=== PATIENT | female | born 1980 | race Caucasian/White ===

== ENCOUNTER 2016-11-06 22:30 | Emergency (ER) | payer OTHER ==
[~2016-11-06] VITALS: Ht 165.1 cm; Wt 95.7 kg
[~2016-11-06 22:30] MED LIST: ALBU5SOL2; BIRTH CONTROL; CETI10TA22; DIPH25CA58; FLUT16SP2; MONT10TA6
[2016-11-06 23:14] LABS: BASO # 0.1 x10^3/uL (0.0-0.2); BASO % 0 % (0-3); EOS % 0 % (0-3); HEMATOCRIT 47.9 % (36.0-47.0); HEMOGLOBIN 16.2 g/dL (12.0-15.5); LYMPH # 1.5 x10^3/uL (1.0-4.8); LYMPH % 13 % (24-48); MEAN CORPUSCULAR HEMOGLOBIN 31 pg (25-35); MEAN CORPUSCULAR HGB CONC 34 g/dL (31-37); MEAN CORPUSCULAR VOLUME 92 fL (79-100); MONO % 1 % (0-9); NEUT % 86 % (31-73); PLATELET COUNT 273 x10^3/uL (140-400); RED BLOOD COUNT 5.22 x10^6/uL (3.50-5.40); RED CELL DISTRIBUTION WIDTH 12.8 % (11.5-14.5)
[2016-11-06] MEDS ORDERED: CONTRAST GIVEN MC PRN (23:15)
[2016-11-06 23:26] LABS: CREATININE 0.9 mg/dL (0.6-1.0); GFR 70.1; POTASSIUM 4.6 mmol/L (3.5-5.1)
[2016-11-06 23:32] LABS: DIRECT BILIRUBIN 0.1 mg/dL (0.0-0.2); TOTAL BILIRUBIN 0.4 mg/dL (0.2-1.0); TOTAL PROTEIN 7.8 g/dL (6.4-8.2)
--- NOTE | 2016-11-06 23:43 | PHYS DOC ---
Past Medical History Past Medical History: Asthma, CHF Additional Past Medical Histor: Severe seasonal allergies. Past Surgical History: Other Additional Past Surgical Histo: D&C, Tumor left ear, Adnoidectomy Alcohol Use: Rarely Drug Use: None Adult General Chief Complaint Chief Complaint: SHORTNESS OF BREATH HPI HPI 28-year-old female presenting to the emergency department today with intermittently having a cough with shortness of breath for 5 weeks. Usually she reports this improved prednisone. She reports a history of asthma. It is worse with exertion. She denies chest pain abdominal pain nausea vomiting diaphoresis. Onset 5 weeks Location lungs Duration intermittent No alleviating factors. Review of Systems Review of Systems ROS negative for nausea vomiting fevers or chills. Negative for abdominal pain headache. All other review of systems is negative unless otherwise noted in history of present illness. Current Medications Current Medications Current Medications Medications (Trade) Dose Ordered Sig/Ruel Start Time Stop Time Status Last Admin Dose Admin Info (Do NOT chart on this entry -- for MONITORING) 1 each PRN DAILY PRN 11/06/16 23:15 11/07/16 01:35 DC Iohexol (Omnipaque 300 Mg/ml) 60 ml 1X ONCE 11/06/16 23:45 11/06/16 23:46 DC 11/07/16 00:08 75 ML Allergies Allergies Allergies Coded Allergies Type Severity Reaction Last Updated Verified Penicillins Allergy Intermediate Unknown 03/12/14 Yes Sulfa (Sulfonamide Antibiotics) Allergy Intermediate Unknown 03/12/14 Yes hydrocodone Allergy Intermediate Unknown 03/12/14 Yes sulfamethoxazole Allergy Intermediate Unknown 03/12/14 Yes trimethoprim Allergy Intermediate Unknown 03/12/14 Yes zolpidem Allergy Intermediate 03/12/14 Yes Uncoded Allergies Type Severity Reaction Last Updated Verified SQUASH Allergy Unknown Unknown 03/12/14 WATERMELON Allergy Unknown Unknown 03/12/14 ZUCCHINI Allergy Unknown Unknown 03/12/14 Physical Exam Physical Exam Constitutional: Well developed, well nourished, no acute distress, non-toxic appearance. Patient breathing comfortably on room air saturating well. HENT: Normocephalic, atraumatic, bilateral external ears normal, oropharynx moist, no oral exudates, nose normal. Eyes: PERRLA, EOMI, conjunctiva normal, no discharge. Neck: Normal range of motion, no tenderness, supple, no stridor. [] Cardiovascular:Heart rate regular rhythm, no murmur Lungs & Thorax: Bilateral breath sounds clear to auscultation . No crackles or wheezing present. Normal extremities. Abdomen: Bowel sounds normal, soft, no tenderness, no masses, no pulsatile masses. [] Skin: Warm, dry, no erythema, no rash. [] Back: No tenderness, no CVA tenderness. Extremities: No tenderness, no cyanosis, no clubbing, ROM intact, no edema. [] Neurologic: Alert and oriented X 3, normal motor function, normal sensory function, no focal deficits noted. Psychologic: Affect normal, judgement normal, mood normal. [] Current Patient Data Vital Signs Vital Signs Date Time Temp Pulse Resp B/P Pulse Ox O2 Delivery O2 Flow Rate FiO2 11/06/16 22:39 98.0 100 22 169/93 98 Room Air 98.0 Lab Values Laboratory Tests Test 11/06/16 23:00 White Blood Count 12.0x10^3/uL (4.0-11.0) H Red Blood Count 5.22x10^6/uL (3.50-5.40) Hemoglobin 16.2g/dL (12.0-15.5) H Hematocrit 47.9% (36.0-47.0) H Mean Corpuscular Volume 92fL (79-100) Mean Corpuscular Hemoglobin 31pg (25-35) Mean Corpuscular Hemoglobin Concent 34g/dL (31-37) Red Cell Distribution Width 12.8% (11.5-14.5) Platelet Count 273x10^3/uL (140-400) Neutrophils (%) (Auto) 86% (31-73) H Lymphocytes (%) (Auto) 13% (24-48) L Monocytes (%) (Auto) 1% (0-9) Eosinophils (%) (Auto) 0% (0-3) Basophils (%) (Auto) 0% (0-3) Neutrophils # (Auto) 10.4x10^3uL (1.8-7.7) H Lymphocytes # (Auto) 1.5x10^3/uL (1.0-4.8) Monocytes # (Auto) 0.1x10^3/uL (0.0-1.1) Eosinophils # (Auto) 0.0x10^3/uL (0.0-0.7) Basophils # (Auto) 0.1x10^3/uL (0.0-0.2) Segmented Neutrophils % 83% (35-66) H Band Neutrophils % 1% (0-9) Lymphocytes % 14% (24-48) L Monocytes % 2% (0-10) Toxic Granulation Slight Platelet Estimate Adequate (ADEQUATE) Sodium Level 137mmol/L (136-145) Potassium Level 4.6mmol/L (3.5-5.1) Chloride Level 101mmol/L (98-107) Carbon Dioxide Level 25mmol/L (21-32) Anion Gap 11 (6-14) Blood Urea Nitrogen 10mg/dL (7-20) Creatinine 0.9mg/dL (0.6-1.0) Estimated GFR (Cockcroft-Gault) 70.1 Glucose Level 158mg/dL (70-99) H Calcium Level 10.0mg/dL (8.5-10.1) Total Bilirubin 0.4mg/dL (0.2-1.0) Direct Bilirubin 0.1mg/dL (0.0-0.2) Aspartate Amino Transferase (AST) 14U/L (15-37) L Alanine Aminotransferase (ALT) 26U/L (14-59) Alkaline Phosphatase 61U/L (46-116) Troponin I Quantitative < 0.017ng/mL (0.000-0.055) OA-Wpd-G-Type Natriuretic Peptide 82pg/mL (0-124) Total Protein 7.8g/dL (6.4-8.2) Albumin 4.0g/dL (3.4-5.0) Lipase 160U/L (73-393) Laboratory Tests 11/06/16 23:00 Laboratory Tests 11/06/16 23:00 EKG EKG EKG shows sinus rhythm with a regular rate. [place] is leftward. Intervals are within normal limits. ST segments congruent. [] Radiology/Procedures Radiology/Procedures [] Chest x-ray shows no obvious infiltrate or pneumothorax. [facility] [address] [place] [address] IMAGING REPORT Signed PATIENT: KOMAL HER ACCOUNT: [id number] : 1980 LOCATION: ER AGE: 36 SEX: F EXAM STATUS: REG ER ORD. PHYSICIAN: MELLISA MANUEL MD REASON: short of breath, evaluate for pulmonary embolism PROCEDURE: CTA CHEST INDICATION: Worsening shortness of air over the past few weeks, weakness. COMPARISON: None TECHNIQUE: Axial CT images obtained through the chest following the intravenous administration of 75 cc of Omni 300 utilizing an angiogram protocol. 3D images processed per protocol. One or more of the following individualized dose reduction techniques were utilized for this examination: 1. Automated exposure control; 2. Adjustment of the mA and/or kV according to patient size; 3. Use of iterative reconstruction technique. FINDINGS: Pulmonary arteries are opacified without central filling defect to suggest pulmonary embolus. The aorta is normal in caliber. The heart is normal in size without pericardial effusion. No significant mediastinal or hilar lymphadenopathy is seen. Calcified subcarinal lymph node is present. No focal opacity, pleural effusion or pneumothorax. A 1.1 cm pulmonary nodule is present within the left lower lobe along the fissure with central calcification, suggestive of a calcified granuloma. The central airways appear patent. The visualized osseous structures and overlying soft tissues demonstrate no acute or suspicious finding. The visualized neck base demonstrates no acute finding. Visualized upper abdomen demonstrates no acute finding. IMPRESSION: 1. No CT evidence of PE or other acute cardiopulmonary process. No focal consolidation. 2. Findings of prior granulomatous disease. Electronically signed by: Sudeep Gamble (Nov 07, 2016 00:53:13) DICTATED and SIGNED BY: SUDEEP GAMBLE MD DATE: 11/07/16 0053 CC: MELLISA MANUEL MD; NO PCP ~ Course & Med Decision Making Course & Med Decision Making Pertinent Labs and Imaging studies reviewed. (See chart for details) 28-year-old female presenting the emergency department or shortness of breath. On evaluation the patient's vital signs showed mild tachycardia with hypertension otherwise unremarkable. Physical exam showed no pulmonary findings. EKG unremarkable. Chest x-ray unremarkable. Blood work obtained which showed mild leukocytosis likely secondary to prednisone. Hemoglobin elevated likely secondary to smoking. Otherwise, chemistry panel unremarkable. Troponin negative. BNP nl. CTA of the chest showed no evidence of pulmonary embolism. There was suggestion of granulomatous disease. Given the patient's clinical presentation age and gender, sarcoidosis moves up on the differential. I referred the patient to her primary care physician for continuing workup of possible sarcoidosis and possible referral to a evp strategy for further treatment and care. Dragon Disclaimer Dragon Disclaimer This electronic medical record was generated, in whole or in part, using a voice recognition dictation system. Departure Departure Impression: Primary Impression: Shortness of breath Disposition: 01 HOME, SELF-CARE Referrals: NO PCP (PCP) SAM SOLIMAN MD Patient Instructions: Sarcoidosis, Shortness of Breath Additional Instructions: Thank you for allowing us to participate in your care today. Followup with your primary care physician in 3 days if your symptoms do not improve. If you do not have a primary care provider you can ask for a list of our primary care providers. Return to the emergency department you have any new or concerning findings. This should be evaluated by the primary care physician and any necessary consulting services for continued management within a few days after discharge. Return to emergency room if you have any new or concerning symptoms including but not limited to fever, chills, nausea, vomiting, intractable pain, any new rashes, chest pain, shortness of air, uncontrolled bleeding, difficulty breathing, and/or vision loss. MELLISA MANUEL MD Nov 06, 2016 23:43
[2016-11-06] MEDS ORDERED: IOHEXOL 300 MG/ML 100ML VIAL. IV ONE (23:45)
[2016-11-06 23:47] LABS: PLT ESTIMATE ADEQUATE (ADEQUATE); TOXIC GRANULATION SLIGHT
--- NOTE | 2016-11-07 00:54 | RAD ---
INDICATION: Worsening shortness of air over the past few weeks, weakness. COMPARISON: None TECHNIQUE: Axial CT images obtained through the chest following the intravenous administration of 75 cc of Omni 300 utilizing an angiogram protocol. 3D images processed per protocol. One or more of the following individualized dose reduction techniques were utilized for this examination: 1. Automated exposure control; 2. Adjustment of the mA and/or kV according to patient size; 3. Use of iterative reconstruction technique. FINDINGS: Pulmonary arteries are opacified without central filling defect to suggest pulmonary embolus. The aorta is normal in caliber. The heart is normal in size without pericardial effusion. No significant mediastinal or hilar lymphadenopathy is seen. Calcified subcarinal lymph node is present. No focal opacity, pleural effusion or pneumothorax. A 1.1 cm pulmonary nodule is present within the left lower lobe along the fissure with central calcification, suggestive of a calcified granuloma. The central airways appear patent. The visualized osseous structures and overlying soft tissues demonstrate no acute or suspicious finding. The visualized neck base demonstrates no acute finding. Visualized upper abdomen demonstrates no acute finding. IMPRESSION: 1. No CT evidence of PE or other acute cardiopulmonary process. No focal consolidation. 2. Findings of prior granulomatous disease. Electronically signed by: Lizbeth Gamble (Nov 07, 2016 00:53:13)
[2016-11-07 01:00] VITALS: BP 138/91
--- NOTE | 2016-11-07 06:15 | EKG ---
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
--- NOTE | 2016-11-07 07:03 | RAD ---
EXAM: Chest, single view. HISTORY: Chest pain. COMPARISON: 03/12/2014. FINDINGS: A frontal view of the chest is obtained. There is no infiltrate, effusion or pneumothorax. The heart is normal in size. IMPRESSION: No acute pulmonary finding.
== END 2016-11-07 01:28 | disposition home or self-care (01) ==
LOC: ER 22:30
DX: R06.02 Shortness of breath (principal); R05 Cough; J45.909 Unspecified asthma, uncomplicated; I50.9 Heart failure, unspecified; Z88.1 Allergy status to other antibiotic agents; Z88.5 Allergy status to narcotic agent; Z88.0 Allergy status to penicillin; Z88.2 Allergy status to sulfonamides; Z88.8 Allergy status to other drugs, medicaments and biological substances; Z91.018 Allergy to other foods
CPT/HCPCS: 36415; 71010; 71275; 80048; 80076; 83690; 83880; 84484; 85007; 85027; 93005; 99285; Q9967

== ENCOUNTER 2016-12-18 09:16 | Emergency (ER) | payer OTHER ==
[~2016-12-18] VITALS: Ht 165.1 cm; Wt 97.5 kg
[2016-12-18 09:35] VITALS: BP 146/95
[2016-12-18] MEDS ORDERED: KETOROLAC TROMETHAMINE 60 MG/2 ML SYRINGE. IM ONE (09:45)
--- NOTE | 2016-12-18 10:32 | RAD ---
Left lower extremity venous ultrasound, 12/18/2016 : History: Left calf pain Duplex evaluation including grayscale, color flow and spectral Doppler analysis was performed. The femoral and popliteal veins show no filling defects to suggest DVT. The visualized calf veins are unremarkable. IMPRESSION: There is no sonographic evidence of deep vein thrombosis in the left lower extremity
--- NOTE | 2016-12-18 10:40 | PHYS DOC ---
Past Medical History Past Medical History: Asthma, CHF Additional Past Medical Histor: Severe seasonal allergies. Past Surgical History: Other Additional Past Surgical Histo: D&C, Tumor left ear, Adnoidectomy Alcohol Use: Rarely Drug Use: None Adult General Chief Complaint Chief Complaint: LOWER EXTREMITY SWELLING [facility] HPI Patient is a 36 year old female who presents with left calf pain and swelling that is intermittent over the past few weeks. State she was seen at primary care and given muscle relaxers and NSAIDs but this has not relieved her pain. Also tried home hydrocodone without relief. Denies injury. States she was fired from clinic due to "coming to [facility] in the recent past and they no longer trust her". She denies rash, f/c, numbness, tingling, weakness. Review of Systems Review of Systems Constitutional: Denies fever or chills [] Eyes: Denies change in visual acuity, redness, or eye pain [] HENT: Denies nasal congestion or sore throat [] Respiratory: Denies cough or shortness of breath [] Cardiovascular: No additional information not addressed in HPI [] GI: Denies abdominal pain, nausea, vomiting, bloody stools or diarrhea [] : Denies dysuria or hematuria [] Musculoskeletal: Denies back pain [] Integument: Denies rash or skin lesions [] Neurologic: Denies headache, focal weakness or sensory changes [] Endocrine: Denies polyuria or polydipsia [] Current Medications Current Medications Current Medications Medications (Trade) Dose Ordered Sig/Ruel Start Time Stop Time Status Last Admin Dose Admin Ketorolac Tromethamine (Toradol Im) 15 mg 1X ONCE 12/18/16 09:45 12/18/16 09:46 DC 12/18/16 10:22 15 MG Allergies Allergies Allergies Coded Allergies Type Severity Reaction Last Updated Verified Penicillins Allergy Intermediate Unknown 03/12/14 Yes Sulfa (Sulfonamide Antibiotics) Allergy Intermediate Unknown 03/12/14 Yes hydrocodone Allergy Intermediate Unknown 03/12/14 Yes sulfamethoxazole Allergy Intermediate Unknown 03/12/14 Yes trimethoprim Allergy Intermediate Unknown 03/12/14 Yes zolpidem Allergy Intermediate 03/12/14 Yes Uncoded Allergies Type Severity Reaction Last Updated Verified SQUASH Allergy Unknown Unknown 03/12/14 WATERMELON Allergy Unknown Unknown 03/12/14 ZUCCHINI Allergy Unknown Unknown 5/16/14 Physical Exam Physical Exam Constitutional: Well developed, well nourished, no acute distress, non-toxic appearance. [] HENT: Normocephalic, atraumatic, bilateral external ears normal, oropharynx moist, nose normal. [] Eyes: PERRLA, EOMI. [] Neck: Normal range of motion, supple. [] Cardiovascular:Heart rate regular rhythm [] Lungs & Thorax: Bilateral breath sounds clear to auscultation [] Abdomen: Bowel sounds normal, soft, no tenderness. [] Skin: Warm, dry, no erythema, no rash. [] Back: Normal rom. [] Extremities: LLE with no obvious deformity or discoloration, has some slight tenderness to calf muscle with no visual or palpable abnormality, ROM intact at all joints, no edema, good dp pulse, sensation intact to light touch. [] Neurologic: Alert and oriented X 3, normal motor function, normal sensory function, no focal deficits noted. [] Psychologic: Affect normal, judgement normal, mood normal. [] Current Patient Data Vital Signs Vital Signs Date Time Temp Pulse Resp B/P Pulse Ox O2 Delivery O2 Flow Rate FiO2 12/18/16 09:35 98.0 97 18 99 Room Air 98.0 Radiology/Procedures Radiology/Procedures US LLE venous doppler IMPRESSION: There is no sonographic evidence of deep vein thrombosis in the left lower extremity DICTATED and SIGNED BY: DANIEL UMANA MD DATE: 12/18/16 1029 Course & Med Decision Making Course & Med Decision Making Pertinent Labs and Imaging studies reviewed. (See chart for details) US with no evidence of DVT. Discussed care for possible muscle spasms v MSK pain. Return precautions given. She understands and agrees with plan. Dragon Disclaimer Dragon Disclaimer This electronic medical record was generated, in whole or in part, using a voice recognition dictation system. Departure Departure Impression: Primary Impression: Pain of left calf Disposition: HOME, SELF-CARE Condition: STABLE Referrals: NO PCP (PCP) Patient Instructions: Musculoskeletal Pain Additional Instructions: Take Tylenol or ibuprofen as needed for pain. Follow-up with your primary care doctor. Return for any concerns. Grayson CHILDRESS MD Dec 18, 2016 10:40
== END 2016-12-18 11:02 | disposition home or self-care (01) ==
LOC: ER 09:16
DX: M79.605 Pain in left leg (principal); J45.909 Unspecified asthma, uncomplicated; I50.9 Heart failure, unspecified; Z88.0 Allergy status to penicillin; Z88.2 Allergy status to sulfonamides; Z88.5 Allergy status to narcotic agent; Z88.1 Allergy status to other antibiotic agents; Z88.8 Allergy status to other drugs, medicaments and biological substances; Z91.018 Allergy to other foods
CPT/HCPCS: 93971; 96372; 99284; J1885

== ENCOUNTER 2017-03-14 12:51 | Inpatient (IN) | payer OTHER ==
[~2017-03-14] VITALS: Ht 162.6 cm; Wt 93.0 kg
[2017-03-14 19:03] VITALS: BP 122/85
[2017-03-14 19:07] VITALS: BP 122/85
[2017-03-14] MEDS ORDERED: ONDANSETRON PF 4 MG/2 ML VIAL. IV PRN (19:45)
[2017-03-14] MEDS ORDERED: DOCUSATE SODIUM 100 MG CAPSULE. PO PRN (19:45)
[2017-03-14] MEDS ORDERED: ZOLPIDEM 5 MG TABLET. PO PRN (19:45)
[2017-03-14] MEDS ORDERED: MORPHINE SULFATE 2 MG/ML DISP.SYRIN. IV PRN (19:45)
[2017-03-14] MEDS ORDERED: MAG HYDROX/ALUMINUM HYD/SIMETH 30 ML ORAL.SUSP PO PRN (19:45)
[2017-03-14] MEDS ORDERED: NITROGLYCERIN SUBLINGUAL 0.4 MG BOTTLE OF 25. SL PRN (19:45)
[2017-03-14] MEDS ORDERED: ACETAMINOPHEN 325 MG TABLET. PO PRN (19:45)
[2017-03-14] MEDS ORDERED: MORPHINE SULFATE 4 MG/ML DISP.SYRIN. IV PRN (19:45)
[2017-03-14] MEDS ORDERED: 0.9 % SODIUM CHLORIDE 10 ML DISP.SYRIN. IV PRN (19:45)
[2017-03-14] MEDS ORDERED: ALBUTEROL SULFATE 2.5 MG/3 ML NEBU. NEB PRN (20:00)
[2017-03-14] MEDS ORDERED: diphenhydrAMINE HCL 25 MG CAPSULE PO PRN (20:30)
[2017-03-14] MEDS ORDERED: MONTELUKAST SODIUM 10 MG TABLET. PO SCH (21:00)
[2017-03-14] MEDS ORDERED: CETIRIZINE HCL 10 MG TABLET. PO SCH (21:00)
[2017-03-14] MEDS: ALBUTEROL SULFATE 2.5 MG/3 ML NEBU. NEB SCH (21:02)
[2017-03-14 23:35] VITALS: BP 107/65
[2017-03-15 03:40] VITALS: BP 115/80
[2017-03-15 06:34] LABS: HEMATOCRIT 43.5 % (36.0-47.0); HEMOGLOBIN 14.8 g/dL (12.0-15.5); RED BLOOD COUNT 4.69 x10^6/uL (3.50-5.40); RED CELL DISTRIBUTION WIDTH 13.3 % (11.5-14.5); WHITE BLOOD COUNT 9.5 x10^3/uL (4.0-11.0)
[2017-03-15 07:00] VITALS: BP 139/94
[2017-03-15 07:10] LABS: CHOLESTEROL 342 mg/dL (0-200); HDLC 46 mg/dL (40-60); NON-HDL CHOLESTEROL 296 mg/dL (0-129)
[2017-03-15 07:13] LABS: CHOLESTEROL/HDL RATIO 7.4
--- NOTE | 2017-03-15 07:18 | RAD ---
Portable chest, 03/14/2017: History: Chest pain Comparison is made to a study from 11/06/2016. The heart size and pulmonary vascularity are normal. No pulmonary infiltrates is seen. There is no evidence of pleural fluid. There is a mild thoracic scoliosis. IMPRESSION: No acute cardiopulmonary abnormality is detected.
--- NOTE | 2017-03-15 07:26 | EKG ---
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
[2017-03-15] MEDS: ALBUTEROL SULFATE 2.5 MG/3 ML NEBU. NEB SCH ×3 (07:46→16:14)
[2017-03-15 07:55] LABS: TRIGLYCERIDES 1080 mg/dL (0-150)
[2017-03-15] MEDS ORDERED: ASPIRIN CHEWABLE 81 MG TABLET. PO SCH (08:00)
[2017-03-15] MEDS ORDERED: PANTOPRAZOLE 40 MG TABLET.DR. PO SCH (08:00)
--- NOTE | 2017-03-15 08:06 | PDOC1 ---
History and Physical Date of Admission Date of Admission DATE: 03/14/17 Identification/Chief Complaint Chief Complaint Chest Pain, Shortness of air Problems: Source Source: Patient History of Present Illness History of Present Illness Pt is a new patient to me who started seeing me after a hospitalization in November for multilobar pneumonia at . She says that since that time she has continued to feel short of air, has had intermittent chest pain and overall feels weak. Pt has been checking her O2 sats at home and they had been running as low as the 70-80s before her hospitalization; now typically run in the upper 80s to lower 90s. She was saturating 91-92% in clinic. Pt saw me about a week ago and was started on antibiotics and steroids with no improvement in her symptoms. EKG in clinic yesterday was normal. Spirometry was consistent with restrictive lung disease. Pt's pulse was in the 120s in clinic, so there was concern for possible pulmonary embolism so patient was admitted. Pt's d-dimer on admission was normal. Her first 2 troponins have been normal. Pt's vital signs have been significantly better since being admitted than they were in clinic. Discussed canceling pulmonology consult, but pt has had a difficult time getting an initial appointment in outpatient and would like to meet the corsage maker. Past Medical History Cardiovascular: HTN Pulmonary: Asthma, Bronchitis GI: No pertinent hx Heme/Onc: No pertinent hx Hepatobiliary: No pertinent hx Psych: No pertinent hx Musculoskeletal: Osteoarthritis Rheumatologic: No pertinent hx Infectious disease: No pertinent hx ENT: No pertinent hx Renal/: No pertinent hx Endocrine: No pertinent hx Dermatology: No pertinent hx Past Surgical History Past Surgical History: Other (Adenoidectomy, D&C, Cholesteotoma Removal) Family History Family History: Cancer, Heart Disease, Other (AIDS) Social History Smoke: No ALCOHOL: none Drugs: None Current Medications Current Medications Current Medications Aspirin (Children'S Aspirin) 81 mg DAILYWBKFT PO ; Start 03/15/17 at 08:00 Enoxaparin Sodium (Lovenox 100mg Syringe) 90 mg Q12HR SQ Last administered on t 20:43; Start 03/14/17 at 20:00 Nitroglycerin (Nitrostat) 0.4 mg PRN Q5MIN PRN SL CHEST PAIN; Start 03/14/17 at 19:45 Morphine Sulfate 2 mg PRN Q2HR PRN IV PAIN; Start 03/14/17 at 19:45 Morphine Sulfate 4 mg PRN Q2HR PRN IV PAIN; Start 03/14/17 at 19:45 Zolpidem Tartrate (Ambien) 5 mg PRN QHS PRN PO INSOMNIA; Start 03/14/17 at 19: 45; Status UNV Ondansetron HCl (Zofran) 4 mg PRN Q4HRS PRN IV NAUSEA/VOMITING; Start 03/14/17 at 19:45 Acetaminophen (Tylenol) 650 mg PRN Q6HRS PRN PO MILD PAIN / TEMP; Start at 19:45 Docusate Sodium (Colace) 100 mg PRN DAILY PRN PO CONSTIPATION; Start 03/14/17 at 19:45 Al Hydroxide/Mg Hydroxide (Mylanta Plus Xs) 30 ml PRN Q2HR PRN PO HEARTBURN / GAS; Start 03/14/17 at 19:45 Sodium Chloride (Normal Saline Flush) 3 ml QSHIFT PRN IV AFTER MEDS AND BLOOD DRAWS; Start 03/14/17 at 19:45 Albuterol Sulfate (Ventolin Neb Soln) 2.5 mg RTQID NEB Last administered on 21:02; Start 03/14/17 at 20:00 Albuterol Sulfate (Ventolin Neb Soln) 2.5 mg PRN Q4HRS PRN NEB SHORTNESS OF BREATH; Start 03/14/17 at 20:00 Amlodipine Besylate (Norvasc) 5 mg DAILY PO ; Start 03/15/17 at 09:00 Lisinopril (Prinivil) 40 mg DAILY PO ; Start 03/15/17 at 09:00 Montelukast Sodium (Singulair) 10 mg QHS PO Last administered on 03/14/17 20: 42; Start 03/14/17 at 21:00 Cetirizine HCl (ZyrTEC) 10 mg HS PO Last administered on 03/14/17 20:42; Start 03/14/17 at 21:00 Diphenhydramine HCl (Benadryl) 50 mg PRN QHS PRN PO INSOMNIA Last administered on 03/14/17 20:42; Start 03/14/17 at 20:30 Active Scripts Active Reported [ Control] Benadryl (Diphenhydramine Hcl) 25 Mg Capsule Flonase (Fluticasone Propionate) 16 Gm [place].susp Zyrtec (Cetirizine Hcl) 10 Mg Tablet Singulair Tablet (Montelukast Sodium) 10 Mg Tablet Albuterol Sulfate 5 Mg/1 Ml Solution Allergies Allergies: Coded Allergies: Penicillins (Verified Allergy, Intermediate, Unknown, 03/12/14) Sulfa (Sulfonamide Antibiotics) (Verified Allergy, Intermediate, Unknown, 03/12/14) hydrocodone (Verified Allergy, Intermediate, Unknown, 03/12/14) sulfamethoxazole (Verified Allergy, Intermediate, Unknown, 03/12/14) trimethoprim (Verified Allergy, Intermediate, Unknown, 03/12/14) zolpidem (Verified Allergy, Intermediate, hallucinations, 03/14/17) Uncoded Allergies: SQUASH (Allergy, Unknown, Unknown, 03/12/14) WATERMELON (Allergy, Unknown, Unknown, 03/12/14) ZUCCHINI (Allergy, Unknown, Unknown, 03/12/14) ROS General: YES: Night Sweats, Fatigue, No: Chills PSYCHOLOGICAL ROS: YES: Obsessive thoughts, No: Anxiety, Depression Eyes: No Decreased vision, No Eye Pain HEENT: No: Nasal congestion, Sore Throat ALLERGY AND IMMUNOLOGY: No: Hives, Post Nasal Drip Hematological and Lymphatic: No: Bleeding Problems, Blood Clots Respiratory: YES: Cough, Shortness of breath, Wheezing, No: Sputum Changes Cardiovascular: yes Chest Pain, yes Edema, No Palpitations Gastrointestinal: No Nausea, No Vomiting, No Abdominal Pain, No Diarrhea, No Constipation Genitourinary: No Dysuria, No Urgency Musculoskeletal: Yes Joint Pain, No Muscle Pain Neurological: Yes Weakness, No Impaired Coord/balance, No Numbness/Tingling Skin: No Rash, No Skin Lesion Changes Physical Exam General: Alert, Oriented X3, Cooperative, No acute distress HEENT: Atraumatic, PERRLA, EOMI, Mucous membr. moist/pink Lungs: Clear to auscultation, Normal air movement Heart: RRR, no rubs, no gallops, no murmurs Abdomen: Normal bowel sounds, Soft, No tenderness, No hepatosplenomegaly Extremities: No clubbing, No cyanosis, No edema, Normal pulses Skin: No rashes, No breakdown, No significant lesion Neuro: Normal speech, Normal tone, Sensation intact, Cranial nerves 3-12 NL Psych/Mental Status: Mental status NL, Mood NL Vitals Vitals Vital Signs Date Time Temp Pulse Resp B/P (MAP) Pulse Ox O2 Delivery O2 Flow Rate FiO2 03/15/17 03:40 97.7 86 18 115/80 (92) 97 Room Air 97.7 Labs Labs Laboratory Tests Test 03/15/17 00:45 03/15/17 06:05 Troponin I Quantitative < 0.017 ng/mL (0.000-0.055) < 0.017 ng/mL (0.000-0.055) White Blood Count 9.5 x10^3/uL (4.0-11.0) Red Blood Count 4.69 x10^6/uL (3.50-5.40) Hemoglobin 14.8 g/dL (12.0-15.5) Hematocrit 43.5 % (36.0-47.0) Mean Corpuscular Volume 93 fL (79-100) Mean Corpuscular Hemoglobin 32 pg (25-35) Mean Corpuscular Hemoglobin Concent 34 g/dL (31-37) Red Cell Distribution Width 13.3 % (11.5-14.5) Platelet Count 221 x10^3/uL (140-400) D-Dimer (Syeda) 0.27 ug/mlFEU (0.00-0.50) Triglycerides Level 1083 mg/dL (0-150) Cholesterol Level 342 mg/dL (0-200) LDL Cholesterol, Calculated mg/dL (0-100) VLDL Cholesterol, Calculated 217 mg/dL (0-40) Non-HDL Cholesterol Calculated 296 mg/dL (0-129) HDL Cholesterol 46 mg/dL (40-60) Cholesterol/HDL Ratio 7.4 Laboratory Tests Test 03/15/17 00:45 03/15/17 06:05 Troponin I Quantitative < 0.017 ng/mL (0.000-0.055) < 0.017 ng/mL (0.000-0.055) White Blood Count 9.5 x10^3/uL (4.0-11.0) Red Blood Count 4.69 x10^6/uL (3.50-5.40) Hemoglobin 14.8 g/dL (12.0-15.5) Hematocrit 43.5 % (36.0-47.0) Mean Corpuscular Volume 93 fL (79-100) Mean Corpuscular Hemoglobin 32 pg (25-35) Mean Corpuscular Hemoglobin Concent 34 g/dL (31-37) Red Cell Distribution Width 13.3 % (11.5-14.5) Platelet Count 221 x10^3/uL (140-400) D-Dimer (Syeda) 0.27 ug/mlFEU (0.00-0.50) Triglycerides Level 1083 mg/dL (0-150) Cholesterol Level 342 mg/dL (0-200) LDL Cholesterol, Calculated mg/dL (0-100) VLDL Cholesterol, Calculated 217 mg/dL (0-40) Non-HDL Cholesterol Calculated 296 mg/dL (0-129) HDL Cholesterol 46 mg/dL (40-60) Cholesterol/HDL Ratio 7.4 VTE Prophylaxis Ordered VTE Prophylaxis Devices: Yes VTE Pharmacological Prophylaxi: Yes Assessment/Plan Assessment/Plan Pt is a 37yo CF admitted for chest pain workup 1)Chest pain- troponins x2 have been normal, 1 more set pending. There is a questionable history of CHF in pt's past, and there is significant history of CHF in her family. ECHO is pending. Cardiology has been consulted. 2)Decreased O2 saturations- improved since admission but have been running in the upper 80s to low 90s at her home and was in the low 90s in clinic yesterday. Spirometry in clinic showed restrictive pattern. Pt normally uses Spiriva and Albuterol at home. She was admitted to at the end of November for multilobar pneumonia. 3)HLD- new diagnosis for patient. Will start pt on statin 4)HTN- well controlled. Will continue pt's Lisinopril 40mg and Amlodipine 5mg -pt still has BMP and TSH pending, as well as an ECHO. Will likely discharge home later today after testing has been completed and pt has gotten the opportunity to meet consultants DONAVAN BOOKER MD March 15, 2017 08:06
[2017-03-15 08:29] LABS: CALCIUM 8.7 mg/dL (8.5-10.1); CREATININE 0.8 mg/dL (0.6-1.0); GFR 79.9; POTASSIUM 4.1 mmol/L (3.5-5.1)
[2017-03-15] MEDS ORDERED: LISINOPRIL 40 MG TABLET. PO SCH (09:00)
[2017-03-15] MEDS ORDERED: amLODIPine BESYLATE 5 MG TABLET PO SCH (09:00)
--- NOTE | 2017-03-15 09:44 | PDOC ---
Provider Note Provider Note dictated TIM TORRES MD March 15, 2017 09:44
--- NOTE | 2017-03-15 09:45 | PDOC2 ---
STEFANIA BRIGGS DIPPER FISH 03/15/17 0945: CARDIAC CONSULT DATE OF CONSULT Date of Consult DATE: 03/15/17 TIME: 09:37 REASON FOR CONSULT Reason for Consult: Chest Pain REFERRING PHYSICIAN Referring Physician: Dr. Glover SOURCE Source: Chart review, Patient HISTORY OF PRESENT ILLNESS HISTORY OF PRESENT ILLNESS This is a 37 yo female who presented secondary to shortness of breath and intermittent chest pressure. Reports she has had ongoing shortness of breath, cough, and fatigue since September of last years. Was treated for multilobar pneumonia at earlier this year. Lived in housing with mold for 10 years. Moved a year and a half ago and felt better for some time, but has felt ill in recent months. Reports chest pressure generally occurs with activity, when she is SOA. Also has slight dizziness with activity. When this occurs, she will check her 02 saturation, which can be as low as the upper 70's to low 80's. Symptoms resolve with rest. Has noticed some chest pain over the last couple of weeks when she lays on her side in bed. Feels as if there is a "ball" in her chest when she lays on her side. Pain not present when laying flat. Denies any LE edema, palpitations, orthopnea, diaphoresis, nausea/vomiting, or fevers. Patient recently seen in PCP office and was started on prednisone and antibiotics, which did not provide significant improvement in symptoms. Spirometry reportedly consistent with restrictive lung disease. CTA obtained in October of this year notable for possible granulomatous disease raising suspicion of sarcoidosis. Patient denies any further workup for this. No h/o smoking. PAST MEDICAL HISTORY Cardiovascular: HTN, Hyperlipidemia Pulmonary: Asthma, Bronchitis, Pneumonia CENTRAL NERVOUS SYSTEM: Other (no pertinent hx) GI: No pertinent hx Heme/Onc: No pertinent hx Hepatobiliary: No pertinent hx Psych: No pertinent hx Rheumatologic: No pertinent hx Infectious disease: No pertinent hx ENT: No pertinent hx Renal/: No pertinent hx Endocrine: Diabetes, Other (PCOS- treated with Metformin for 2-3 years) Dermatology: No pertinent hx PAST SURGICAL HISTORY Past Surgical History Adenoidectomy, D & C FAMILY HISTORY Family History: Heart Disease (sister at 29 from unknown heart related disease. brother with cardiomyopathy s/p radiation), Other (brother- lymphoma ) SOCIAL HISTORY Smoke: No ALCOHOL: none Drugs: None Lives: Alone CURRENT MEDICATIONS CURRENT MEDICATIONS Current Medications Medications (Trade) Dose Ordered Sig/Ruel Route PRN Reason Start Time Stop Time Status Last Admin Dose Admin Aspirin (Children'S Aspirin) 81 mg DAILYWBKFT PO 03/15/17 08:00 03/15/17 08:19 Enoxaparin Sodium (Lovenox 100mg Syringe) 90 mg Q12HR SQ 03/14/17 20:00 03/15/17 08:20 Morphine Sulfate 2 mg PRN Q2HR PRN IV PAIN 03/14/17 19:45 03/15/17 08:22 Albuterol Sulfate (Ventolin Neb Soln) 2.5 mg RTQID NEB 03/14/17 20:00 03/15/17 07:46 Amlodipine Besylate (Norvasc) 5 mg DAILY PO 03/15/17 09:00 03/15/17 08:19 Lisinopril (Prinivil) 40 mg DAILY PO 03/15/17 09:00 03/15/17 08:18 Montelukast Sodium (Singulair) 10 mg QHS PO 03/14/17 21:00 03/14/17 20:42 Cetirizine HCl (ZyrTEC) 10 mg HS PO 03/14/17 21:00 03/14/17 20:42 Diphenhydramine HCl (Benadryl) 50 mg PRN QHS PRN PO INSOMNIA 03/14/17 20:30 03/14/17 20:42 Pantoprazole Sodium (Protonix) 40 mg DAILYAC PO 03/15/17 08:00 03/15/17 08:19 ALLERGIES ALLERGIES: Coded Allergies: Penicillins (Verified Allergy, Intermediate, Unknown, 03/12/14) Sulfa (Sulfonamide Antibiotics) (Verified Allergy, Intermediate, Unknown, 03/12/14) hydrocodone (Verified Allergy, Intermediate, Unknown, 03/12/14) sulfamethoxazole (Verified Allergy, Intermediate, Unknown, 03/12/14) trimethoprim (Verified Allergy, Intermediate, Unknown, 03/12/14) zolpidem (Verified Allergy, Intermediate, hallucinations, 03/14/17) Uncoded Allergies: SQUASH (Allergy, Unknown, Unknown, 03/12/14) WATERMELON (Allergy, Unknown, Unknown, 03/12/14) ZUCCHINI (Allergy, Unknown, Unknown, 5/16/14) ROS Review of System 14 point ROS conducted with pertinent positives noted above in HPI. PHYSICAL EXAM General: Alert, Oriented X3, Cooperative HEENT: Atraumatic, Mucous membr. moist/pink Lungs: Clear to auscultation Heart: Regular rate, Normal S1, Normal S2, Other (central chest tenderness upon palpation) Abdomen: Other (mild central abdominal tenderness) Extremities: No edema, Normal pulses Skin: No breakdown, No significant lesion Neuro: Normal speech, Sensation intact Psych/Mental Status: Mental status NL, Mood NL MUSCULOSKELETAL: Full range of motion without pain VITALS VITALS Vital Signs Date Time Temp Pulse Resp B/P (MAP) Pulse Ox O2 Delivery O2 Flow Rate FiO2 03/15/17 08:22 97 Room Air 03/15/17 08:19 89 139/94 03/15/17 07:00 98.1 18 98.1 LABS Lab: Laboratory Tests Test 03/15/17 00:45 03/15/17 06:05 Troponin I Quantitative < 0.017 ng/mL (0.000-0.055) < 0.017 ng/mL (0.000-0.055) White Blood Count 9.5 x10^3/uL (4.0-11.0) Red Blood Count 4.69 x10^6/uL (3.50-5.40) Hemoglobin 14.8 g/dL (12.0-15.5) Hematocrit 43.5 % (36.0-47.0) Mean Corpuscular Volume 93 fL (79-100) Mean Corpuscular Hemoglobin 32 pg (25-35) Mean Corpuscular Hemoglobin Concent 34 g/dL (31-37) Red Cell Distribution Width 13.3 % (11.5-14.5) Platelet Count 221 x10^3/uL (140-400) D-Dimer (Syeda) 0.27 ug/mlFEU (0.00-0.50) Sodium Level 137 mmol/L (136-145) Potassium Level 4.1 mmol/L (3.5-5.1) Chloride Level 101 mmol/L (98-107) Carbon Dioxide Level 27 mmol/L (21-32) Anion Gap 9 (6-14) Blood Urea Nitrogen 13 mg/dL (7-20) Creatinine 0.8 mg/dL (0.6-1.0) Estimated GFR (Cockcroft-Gault) 79.9 Glucose Level 122 mg/dL (70-99) Calcium Level 8.7 mg/dL (8.5-10.1) Triglycerides Level 1080 mg/dL (0-150) Cholesterol Level 342 mg/dL (0-200) LDL Cholesterol, Calculated mg/dL (0-100) VLDL Cholesterol, Calculated 216 mg/dL (0-40) Non-HDL Cholesterol Calculated 296 mg/dL (0-129) HDL Cholesterol 46 mg/dL (40-60) Cholesterol/HDL Ratio 7.4 Thyroid Stimulating Hormone (TSH) 2.023 uIU/mL (0.358-3.74) ASSESSMENT/PLAN ASSESSMENT/PLAN 1. Chest Pain, atypical 2. Acute on chronic respiratory failure 3. Hypertension 4. Dyslipidemia 5. Significant hypertriglyceridemia 6. PCOS Recommendations 1. Echo to evaluate LV function/presence of WMA 2. Suspect CP is MSK in origin as it is reproducible with palpation. AMI ruled out 3. Statin therapy initiated. Add fenofibrate 4. Diet/lifestyle modification 5. Follow pulmonary recommendations Problems: DAPHNE POST MD 03/15/17 1231: CARDIAC CONSULT ALLERGIES ALLERGIES: Coded Allergies: Penicillins (Verified Allergy, Intermediate, Unknown, 03/12/14) Sulfa (Sulfonamide Antibiotics) (Verified Allergy, Intermediate, Unknown, 03/12/14) hydrocodone (Verified Allergy, Intermediate, Unknown, 03/12/14) sulfamethoxazole (Verified Allergy, Intermediate, Unknown, 03/12/14) trimethoprim (Verified Allergy, Intermediate, Unknown, 03/12/14) zolpidem (Verified Allergy, Intermediate, hallucinations, 03/14/17) Uncoded Allergies: SQUASH (Allergy, Unknown, Unknown, 03/12/14) WATERMELON (Allergy, Unknown, Unknown, 03/12/14) ZUCCHINI (Allergy, Unknown, Unknown, 03/12/14) ASSESSMENT/PLAN ASSESSMENT/PLAN Patient seen and examined. Agree with above nurse practitioner note. 37-year-old woman presenting with noncardiac chest pain. Normal cardiac exam. Normal EKG and echocardiogram. Normal CT scan of the chest. No obvious hypoxia noted. Further recommendations per pulmonary service. No further cardiac vascular testing needed. Thank you this consultation. Problems: STEFANIA BRIGGS APRN March 15, 2017 09:45 DAPHNE POST MD March 15, 2017 12:31
[2017-03-15] MEDS ORDERED: IOHEXOL 300 MG/ML 75 ML VIAL IV ONE (10:30)
[2017-03-15] MEDS ORDERED: CONTRAST GIVEN MC PRN (10:30)
[2017-03-15 11:00] VITALS: BP 133/83
--- NOTE | 2017-03-15 11:22 | CARD ---
APPROVED REPORT EXAM: Two-dimensional and M-mode echocardiogram with Doppler and color Doppler. Other Information Quality : Fair INDICATION Chest Pain 2D DIMENSIONS RVDd2.1 (2.9-3.5cm)Left Atrium(2D)2.8 (1.6-4.0cm) IVSd1.2 (0.7-1.1cm)Aortic Root(2D)2.6 (2.0-3.7cm) LVDd4.2 (3.9-5.9cm)LVOT Diameter2.1 (1.8-2.4cm) PWd0.8 (0.7-1.1cm)LVDs2.8 (2.5-4.0cm) FS (%) 30.0 %SV48.4 ml LVEF(%)60.0 (>50%) Aortic Valve AoV Peak Jaison.133.6cm/sAoV VTI19.1cm AO Peak GR.7.1mmHgLVOT Peak Jaison.97.5cm/s LVOT VTI 18.81cmAO Mean GR.3mmHg ABELINO (VMAX)2.53ru5RMQ (VTI)3.32cm2 Mitral Valve MV E Zjinmktm77.7cm/sMV DECEL [id number] MV A Fpmxmunx96.4cm/sMV ORT30wt E/A Ratio1.0MVA (PHT)3.21cm2 TDI E/Lateral E'7.4E/Medial E'6.9 Pulmonary Vein S1 Bmdfjfax05.7cm/sD2 Sigmygnr10.7cm/s PVa [id number] LEFT VENTRICLE The left ventricle is normal size. There is mild asymmetric septal left ventricular hypertrophy. The left ventricular systolic function is normal. The Ejection Fraction is 55-60%. There is normal LV seg mental wall motion. The left ventricular diastolic function and filling is normal for age. RIGHT VENTRICLE The right ventricle is normal size. The right ventricular systolic function is normal. ATRIA The left atrium size is normal. The right atrium size is normal. The interatrial septum is intact wit h no evidence for an atrial septal defect or patent foramen ovale as noted on 2-D or Doppler imaging. AORTIC VALVE The aortic valve is normal in structure and function. Doppler and Color Flow revealed no significant aortic regurgitation. There is no significant aortic valvular stenosis. MITRAL VALVE The mitral valve is normal in structure and function. There is no evidence of mitral valve prolapse. There is no mitral valve stenosis. Doppler and Color Flow revealed trace mitral valve regurgitation. TRICUSPID VALVE The tricuspid valve is normal in structure and function. Doppler and Color Flow revealed no tricuspid valve regurgitation noted. There is no tricuspid valve stenosis. PULMONIC VALVE The pulmonary valve is normal in structure and function. Doppler and Color Flow revealed no pulmonic valvular regurgitation. There is no pulmonic valvular stenosis. GREAT VESSELS The aortic root is normal in size. The ascending aorta is normal in size. The IVC is normal in size a nd collapses >50% with inspiration. PERICARDIAL EFFUSION There is no evidence of significant pericardial effusion. Critical Notification Critical Value: No <Conclusion> The left ventricular systolic function is normal. The Ejection Fraction is 55-60%. There is normal LV segmental wall motion. Doppler and Color Flow revealed trace mitral valve regurgitation. There is no evidence of significant pericardial effusion.
--- NOTE | 2017-03-15 11:29 | CONS ---
DATE OF CONSULTATION: ATTENDING PHYSICIAN: Celena Glover MD. REASON FOR CONSULTATION: Dyspnea. HISTORY OF PRESENT ILLNESS: The patient is a 37-year-old female who has never smoked cigarettes. She was hospitalized for multilobar pneumonia at in the month of November. She states she has been short of breath since October. She also had some intermittent chest pain. Overall, feels weak as well. She states she also has a cough since August or September. She said she used to live in an apartment where she lived for 10 years and she had mold, but when she moved to a new apartment, she did feel better, but then felt sick again. She was seen in the office yesterday by PCP and was noted to have saturations in the 70s and 80s and also she was tachycardic as well. There was a spirometry, which suggested a restrictive pattern as an outpatient. She has been hospitalized for further evaluation. I have been asked to see her for her above symptoms. I have reviewed her chest x-ray and it does not show any acute infiltrates. The patient denies any headache, no nausea, vomiting, no diarrhea. Denies any rashes. She does not have any pets at home. Never had history of any blood clots in her lungs or legs. PAST MEDICAL HISTORY: Significant for history of asthma, adult onset, history of osteoarthritis. PAST SURGICAL HISTORY: Adenoidectomy and D and C. FAMILY HISTORY: Noncontributory to lungs. SOCIAL HISTORY: Nonsmoker. ALLERGIES: MULTIPLE INCLUDING PENICILLIN, SULFA, HYDROCODONE, TRIMETHOPRIM AND AMBIEN. REVIEW OF SYSTEMS: Twelve-point systems were obtained, pertinent positives discussed in history of present illness, otherwise noncontributory. All systems that were negative were reviewed as well. MEDICATIONS: All reviewed as listed in the MRAD including full dose Lovenox. PHYSICAL EXAMINATION: VITAL SIGNS: Stable except for diastolic blood pressure of 94, pulse ox is 97% on room air, afebrile. HEENT: Sclerae nonicteric. NECK: Supple. LUNGS: Clear breath sounds. CARDIOVASCULAR: Regular. ABDOMEN: Soft, nontender. EXTREMITIES: With no pitting edema. LABORATORY DATA: Reviewed. Her triglycerides were 1080. BUN 13, creatinine 0.8. TSH 2.02. D-dimer is 0.27. White cell count 9.5, hemoglobin ____ and platelets of 221. IMPRESSION: 1. Acute on chronic hypoxic respiratory failure with ongoing dyspnea since October of this year along with a persistent cough since September of last year. She is a lifetime nonsmoker. Chest x-ray does not show any definite infiltrates although there may be faint interstitial markings seen in the left upper lobe. The etiology is not so obvious. Clinically, less likely thromboembolic disease as her D-dimer is normal. I would like to, however, obtain a CT chest with contrast to better assess for any interstitial lung disease and make further recommendations. Thromboembolic disease will be ruled out as well. We will also obtain echocardiogram to further evaluate her dyspnea. 2. Nonsmoker. 3. Severe hypertriglyceridemia. 4. Possible ALAN induced cough RECOMMENDATIONS: 1. Continue full dose Lovenox for now. 2. Obtain CT chest with PE protocol to assess and rule out thromboembolic disease and also to rule out interstitial lung disease. 3. Continue present bronchodilators. 4. The chronic cough can be a manifestation of lisinopril. At this time, I would add a steroid nebulizer to see if there is any improvement and if the cough does not resolve, then we will consider changing lisinopril to a different medication. 5. Obtain echocardiogram. 6. Further recommendations to follow. 7. Management of hypertriglyceridemia per PCP. TIM TORRES MD DR: MYLENE/mikey JOB#: [id number] / [id number] BOB
--- NOTE | 2017-03-15 11:38 | RAD ---
Examination: CT angiogram of the chest History: History of dyspnea Comparison: 11/07/2016 Technique: Axial CT angiographic images were performed with IV contrast. Coronal sagittal 3-D MIP reformats are performed PQRS Compliance Statement: One or more of the following individualized dose reduction techniques were utilized for this examination: 1. Automated exposure control 2. Adjustment of the mA and/or kV according to patient size 3. Use of iterative reconstruction technique Findings: The caliber of the aorta grossly appears unremarkable. The central airways are patent. There is no evidence of filling defect identified in the main pulmonary arterial trunk, right and left main pulmonary arteries. The visualized lobar and segmental branches the pulmonary arteries demonstrate no evidence of obvious filling defects. Small calcified granuloma identified in the left lower lobe of the lung. Otherwise the lungs are clear. No radiologically significant mediastinal lymphadenopathy identified. Few calcified mediastinal lymph nodes are identified. Small hiatal hernia. Small focal enhancement identified in the spleen measuring 1.2 cm grossly similar to prior exam could be a hemangioma No evidence of lytic bony destructive lesion. Impression: 1. No evidence of pulmonary embolism.
[2017-03-15] MEDS ORDERED: FENOFIBRATE 54 MG TABLET. PO SCH (13:00)
[2017-03-15] MEDS ORDERED: ANTI-COAG MONITOR BY PHARMACY. MC PRN (13:15)
[2017-03-15] MEDS ORDERED: ATOR40TA59 PO (14:38)
[2017-03-15] MEDS ORDERED: ASPI81TA2 PO (14:38)
[2017-03-15] MEDS ORDERED: LISI40TA PO (14:38)
[2017-03-15] MEDS ORDERED: RANI150C PO (14:38)
[2017-03-15] MEDS ORDERED: AMLO5TAB2 PO (14:38)
[2017-03-15] MEDS ORDERED: FENO54TA PO (14:38)
--- NOTE | 2017-03-15 14:39 | PDOC3 ---
Discharge Summary* Date of Admission: March 14, 2017 Date of Discharge: March 15, 2017 Admitting Diagnosis Chest Pain, difficulties breathing Final Diagnosis Acute respiratory failure- resolved, non cardiac chest pain, HTN, HLD CONSULTS Cardiology, Pulmonology Procedures CXR- WNL CT Chest- 1.2cm enhancement in spleen similar to before that could be hemangioma. No pulmonary embolism ECHO- mild asymmetric septal LVH, otherwise WNL Brief Hospital Course Pt is a 37yo CF admitted for chest pain workup 1)Chest pain- troponins x2 were normal. Normal CT Chest. Essentially normal ECHO. Cardiology and pulmonology were following. Csr recommended starting steroid inhaler, and if this doesn't improve her symptoms, changing Lisinopril. 2)Decreased O2 saturations- improved since admission but have been running in the upper 80s to low 90s at her home and was in the low 90s in clinic yesterday. Spirometry in clinic showed restrictive pattern. Pt normally uses Spiriva and Albuterol at home. She was admitted to at the end of November for multilobar pneumonia. See above 3)HLD- new diagnosis for patient. Pt started on statin therapy. 4)HTN- well controlled. Will continue pt's Lisinopril 40mg and Amlodipine 5mg for now 5)Prediabetes Disposition/Orders: D/C to Home CONDITION AT DISCHARGE: Improved, Stable Diet: Cardiac Scheduled Amlodipine Besylate (Amlodipine Besylate), 5 MG PO DAILY Aspirin (Aspirin), 81 MG PO DAILYWBKFT Atorvastatin Calcium (Atorvastatin Calcium), 40 MG PO QHS Fenofibrate (Fenofibrate), 54 MG PO DAILY Lisinopril (Lisinopril), 40 MG PO DAILY Ranitidine Hcl (Ranitidine Hcl), 1 CAP PO BID Miscellaneous Medications Albuterol Sulfate (Albuterol Sulfate), (Reported) Cetirizine Hcl (Zyrtec), (Reported) Diphenhydramine Hcl (Benadryl), (Reported) Fluticasone Propionate (Flonase), (Reported) Montelukast Sodium (Singulair Tablet), (Reported) [ Control], (Reported) PCP Follow up with Dr. Booker in 5-7 days. Follow up with Dr. Bergman in the next 2 weeks Time Spent Total time spent with patient [] minutes for coordination of care, counseling, and education. DONAVAN BOOKER MD March 15, 2017 14:39
[2017-03-15 15:00] VITALS: BP 104/63
[2017-03-15] MEDS ORDERED: ATORVASTATIN CALCIUM 40 MG TABLET. PO SCH (21:00)
== END 2017-03-15 18:00 | disposition home or self-care (01) | DRG 205 ==
LOC: 6 SOUTH 18:13
PROVIDERS: ADMIT Family Medicine; ATTEND Family Medicine
DX: M94.0 Chondrocostal junction syndrome [Tietze] (principal); J96.21 Acute and chronic respiratory failure with hypoxia; J45.909 Unspecified asthma, uncomplicated; E11.9 Type 2 diabetes mellitus without complications; E28.2 Polycystic ovarian syndrome; E78.1 Pure hyperglyceridemia; E78.5 Hyperlipidemia, unspecified; I10 Essential (primary) hypertension; J98.4 Other disorders of lung; M19.90 Unspecified osteoarthritis, unspecified site; R07.9 Chest pain, unspecified; Z82.49 Family history of ischemic heart disease and other diseases of the circulatory system; Z80.7 Family history of other malignant neoplasms of lymphoid, hematopoietic and related tissues; Z88.0 Allergy status to penicillin; Z88.2 Allergy status to sulfonamides; Z88.8 Allergy status to other drugs, medicaments and biological substances; Z91.018 Allergy to other foods
CPT/HCPCS: 36415; 71010; 71275; 80048; 80061; 83036; 84443; 84484; 85027; 85379; 93005; 93306; 94250; 94640; 94760; J1650; J2270; Q0163; Q9967

== ENCOUNTER → 2017-07-29 | Outpatient (CLI) | payer OTHER ==
[~2017-07-29] MED LIST changes: +AMLO5TAB2 PO; +ASPI-630 PO; +ATOR40TA59 PO; +FENO54TA PO; +LISI40TA PO; +RANI150C PO
--- NOTE | 2017-07-29 12:06 | RAD ---
Left neck ultrasound, 07/29/2017: History: Neck pain and swelling The area of clinical concern in the left submandibular region was carefully scanned. 2 small smooth lymph nodes are seen at this level. The largest of these measures 11 x 6 mm. These are not considered to be pathologically enlarged. No abnormal fluid collection or mass is seen. IMPRESSION: No significant abnormality is detected. CT scanning may be useful for further evaluation, if clinically indicated.
--- NOTE | 2017-07-29 12:12 | RAD ---
Abdominal ultrasound, 07/29/2017: History:, Abdominal pain The gallbladder is within normal limits in size. There is no sonographic evidence of cholelithiasis. The gallbladder coker are not thickened. No bile duct dilatation is seen. No hepatic abnormality is detected. The pancreas and portions of the central retroperitoneum were obscured by overlying bowel. The abdominal aorta is of normal caliber. The visualized portions of the inferior vena cava show no abnormality. The spleen is of normal size. No renal abnormality is detected. No free fluid is evident in the abdomen. IMPRESSION: No significant abdominal abnormality is detected. Pelvic ultrasound, 07/29/2017: Transabdominal scans were obtained. The uterus measures 10 x 5 x 6.5 cm. The central uterine echo complex is not clearly defined. No uterine mass is seen. The right ovary is unremarkable. The left ovary could not be visualized. No free fluid is evident in the pelvis. The patient refused transvaginal scanning at this time. IMPRESSION: The limited pelvic ultrasound reveals no abnormality.
== END | disposition home or self-care (01) ==
LOC: US 07:27
PROVIDERS: ATTEND Family Medicine
DX: R10.31 Right lower quadrant pain (principal); M54.2 Cervicalgia
CPT/HCPCS: 76536; 76700; 76856

== ENCOUNTER 2017-11-15 06:46 | Emergency (ER) | payer OTHER ==
[2017-11-15 07:31] LABS: ADD MAN DIFF? NO
[2017-11-15] MEDS: ONDANSETRON PF 4 MG/2 ML VIAL. IV (07:35)
[2017-11-15] MEDS: MORPHINE SULFATE 4 MG/ML DISP.SYRIN. IV (07:36)
[2017-11-15 07:42] LABS: BASO # 0.1 x10^3/uL (0.0-0.2); BASO % 1 % (0-3); EOS # 0.1 x10^3/uL (0.0-0.7); EOS % 1 % (0-3); HEMATOCRIT 44.8 % (36.0-47.0); HEMOGLOBIN 15.3 g/dL (12.0-15.5); LYMPH # 1.9 x10^3/uL (1.0-4.8); LYMPH % 17 % (24-48); MEAN CORPUSCULAR HEMOGLOBIN 32 pg (25-35); MEAN CORPUSCULAR HGB CONC 34 g/dL (31-37); MEAN CORPUSCULAR VOLUME 94 fL (79-100); MONO # 0.5 x10^3/uL (0.0-1.1); MONO % 5 % (0-9); NEUT # 8.5 x10^3uL (1.8-7.7); NEUT % 77 % (31-73); PLATELET COUNT 256 x10^3/uL (140-400); RED BLOOD COUNT 4.79 x10^6/uL (3.50-5.40); RED CELL DISTRIBUTION WIDTH 12.9 % (11.5-14.5)
[2017-11-15 07:56] LABS: ANION GAP 12 (6-14); BLOOD UREA NITROGEN 13 mg/dL (7-20); BUN/CREATININE RATIO 19 (6-20); CALCIUM 9.1 mg/dL (8.5-10.1); CARBON DIOXIDE 23 mmol/L (21-32); CHLORIDE 105 mmol/L (98-107); CREATININE 0.7 mg/dL (0.6-1.0); GFR 93.2; GLUCOSE 157 mg/dL (70-99); POTASSIUM 4.4 mmol/L (3.5-5.1); SODIUM 140 mmol/L (136-145)
[2017-11-15 07:57] LABS: ALBUMIN 3.5 g/dL (3.4-5.0); ALK PHOS 54 U/L (46-116); ALT (SGPT) 22 U/L (14-59); AST (SGOT) 17 U/L (15-37); TOTAL BILIRUBIN 0.3 mg/dL (0.2-1.0); TOTAL PROTEIN 7.1 g/dL (6.4-8.2)
[2017-11-15 08:00] LABS: TROPONINI < 0.017 ng/mL (0.000-0.055)
[2017-11-15] MEDS: diazePAM 5 MG TABLET PO (08:44)
== END 2017-11-15 09:45 | disposition home or self-care (01) ==
LOC: ER 06:46
DX: M25.512 Pain in left shoulder (principal); Z88.0 Allergy status to penicillin; Z88.2 Allergy status to sulfonamides; Z88.5 Allergy status to narcotic agent; Z88.1 Allergy status to other antibiotic agents; Z91.018 Allergy to other foods
CPT/HCPCS: 36415; 71045; 73030; 80053; 84484; 85025; 93005; 96374; 96375; 99285-25; J2270; J2405

== ENCOUNTER 2017-11-18 18:11 | Emergency (ER) | payer OTHER ==
[2017-11-18] MEDS ORDERED: HYDROcodone/APAP 5/325MG 1 TAB TABLET PO (18:45)
[2017-11-18] MEDS: oxyCODONE/APAP 5/325 1 TAB TABLET PO (19:02)
== END 2017-11-18 20:21 | disposition home or self-care (01) ==
LOC: ER 18:11
DX: M54.10 Radiculopathy, site unspecified (principal); M19.90 Unspecified osteoarthritis, unspecified site; J45.909 Unspecified asthma, uncomplicated; I50.9 Heart failure, unspecified; E89.0 Postprocedural hypothyroidism; Z88.1 Allergy status to other antibiotic agents; Z88.5 Allergy status to narcotic agent; Z88.0 Allergy status to penicillin; Z88.2 Allergy status to sulfonamides; Z91.018 Allergy to other foods
CPT/HCPCS: 93971; 99284-25

== ENCOUNTER → 2018-05-16 | Outpatient (CLI) | payer OTHER ==
[2018-05-16] MEDS: IOHEXOL 300 MG/ML 100ML VIAL. IV (08:59)
[2018-05-16] MEDS: IOHEXOL 240 MG/ML 50ML VIAL. PO (08:59)
== END | disposition home or self-care (01) ==
LOC: CT 07:38
DX: K76.0 Fatty (change of) liver, not elsewhere classified (principal); I10 Essential (primary) hypertension; E11.9 Type 2 diabetes mellitus without complications; E78.5 Hyperlipidemia, unspecified; E89.0 Postprocedural hypothyroidism
CPT/HCPCS: 74177; Q9966; Q9967